=== PATIENT | male | born 1970 | race Caucasian/White ===

== ENCOUNTER → 2018-06-16 | Outpatient (CLI) | payer OTHER ==
--- NOTE | 2018-06-16 11:48 | XR ---
EXAMINATION TYPE: XR shoulder complete RT DATE OF EXAM: 06/16/2018 CLINICAL HISTORY: Injury with pain. TECHNIQUE: Three views of the right shoulder are obtained. COMPARISON: None. FINDINGS: There is no acute fracture/dislocation evident in the right shoulder. There is mild to mod erate narrowing at acromioclavicular joint. Glenohumeral joint is maintained. The visualized ribs ar e intact and unremarkable. IMPRESSION: There is no acute fracture or dislocation in the right shoulder.
== END ==
LOC: RADXRMAIN 11:13
PROVIDERS: ATTEND Emergency Medicine
DX: S43.401A Unspecified sprain of right shoulder joint, initial encounter (principal)

== ENCOUNTER → 2018-06-23 | Outpatient (CLI) | payer OTHER ==
--- NOTE | 2018-06-23 10:27 | MR ---
EXAMINATION TYPE: MR shoulder RT wo con DATE OF EXAM: 06/23/2018 COMPARISON: Plain film 06/16/2018 HISTORY: Sprain of right shoulder joint TECHNIQUE: Multiplanar, multisequence imaging of the right shoulder is performed without contrast. FINDINGS: Rotator Cuff: Abnormal increased signal and thickening present within the rotator cuff, increased sig nal at the undersurface extends into the tendon suggestive of a rim rent tear Acromioclavicular Joint: Intact Glenohumeral Joint: Within normal limits Labrum: The labrum appears grossly intact given limitation of non-arthrogram study. Biceps Tendon: The long head of biceps is in normal location within bicipital groove. Bone marrow signal: Pseudocysts are present within the humeral head. Other: There is some fluid signal subacromial subdeltoid bursa. IMPRESSION: Partial tear, possible [place] tear with tendinosis of the rotator cuff
== END | disposition home or self-care (01) ==
LOC: RADMRIMAIN 06:51
PROVIDERS: ATTEND Emergency Medicine
DX: S43.401D Unspecified sprain of right shoulder joint, subsequent encounter (principal); M75.111 Incomplete rotator cuff tear or rupture of right shoulder, not specified as traumatic

== ENCOUNTER 2018-09-09 06:29 | Day surgery (SDC) | payer BC, OTHER ==
[2018-09-07 12:57] VITALS: BMI 40.4
--- NOTE | 2018-09-08 09:12 | HP ---
HISTORY AND PHYSICAL CHIEF COMPLAINT: Right shoulder pain. 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 He fell over, catching himself landing on the right arm. He has persistent pain with overhead use and at night. He has tried therapy without much relief. He denies previous problems. PAST MEDICAL HISTORY: Negative. PAST SURGICAL HISTORY: Significant for appendectomy and previous left shoulder surgery. CURRENT MEDICATIONS: Aleve. He denies drug allergies. FAMILY HISTORY: Significant for cardiac disease. SOCIAL HISTORY: Negative for current tobacco or alcohol use. REVIEW OF SYSTEMS: A 16-point review of systems otherwise reviewed and is noncontributory. PHYSICAL EXAMINATION: On examination, the patient is approximately 5 foot 7, 248 pounds of endomorphic habitus. HEENT exam is nonfocal. Neck is supple. He is tender about the right shoulder anterior subacromial space. He has moderate subacromial crepitus. Active range of motion forward elevation 155 degrees, external rotation with arm at side 60 degrees. internal rotation to L1. Motor strength is 5-/5 for abduction, 5-/5 for external rotation. Impingement test, Neer test are positive. His distal neurovascular exam appears intact in the right upper extremity. Previous MRI report right shoulder shows evidence of increased signal involving the supraspinatus insertion indicative of a possible partial-thickness tear. IMPRESSION: Impingement right shoulder with rotator cuff strain/partial-thickness rotator cuff tear. RECOMMENDATIONS: I talked to the patient at length regarding his condition along with treatment options. He is having persistent symptoms despite adequate conservative measures. After a thorough discussion, he opts to proceed with surgery. We will plan to proceed with arthroscopic evaluation with possible subacromial decompression, arthroscopic rotator cuff repair versus debridement. Risks and benefits were discussed at length in layman's terms. We will likely perform that as an outpatient procedure. MMODL / IJN: [id number] /
[~2018-09-09 06:29] MED LIST: DEXAMETHASONE SOD PHOSPHATE 10 MG/ML 1 ML VIAL IV ONE; HYDROmorphone 0.5 MG/0.5 ML SYRINGE IVP PRN; LACTATED RINGERS 1,000 ML IV SCH; MIDAZOLAM 2 MG/2 ML VIAL IV PRN; ONDANSETRON 4 MG/2 ML VIAL IVP ONE; SCOPOLAMINE 1.5MG/72HR PATCH TRANSDERM ONE; ceFAZolin IN SWFI 2 GM/20 ML SYRINGE IVP ONE
[2018-09-09] MEDS ORDERED: LIDOCAINE 1% 20 ML VIAL (10MG/ML) FOR IV START INTRADERMA ONE (06:59)
[2018-09-09] MEDS: fentaNYL (PF) 50 MCG/ML 2 ML AMP IVP ONE ×2 (07:04→07:10)
[2018-09-09] MEDS ORDERED: fentaNYL (PF) 50 MCG/ML 2 ML AMP ONE (08:21)
[2018-09-09] MEDS ORDERED: MIDAZOLAM 2 MG/2 ML VIAL ONE (08:21)
[2018-09-09] MEDS ORDERED: LIDOCAINE 1% INJ 10MG/ML (20 ML MDV) ONE (08:21)
[2018-09-09] MEDS ORDERED: PROPOFOL 10 MG/ML 20 ML VIAL IV ONE (08:21)
[2018-09-09] MEDS ORDERED: DEXAMETHASONE SOD PHOSPHATE 4 MG/ML 1 ML VIAL ONE (08:21)
[2018-09-09] MEDS ORDERED: ROPIVACAINE 5 MG/ML 30 ML VIAL ONE (08:21)
[2018-09-09] MEDS ORDERED: SUCCINYLCHOLINE CHLORIDE 100 MG/5 ML SYR IV ONE (08:21)
[2018-09-09] MEDS ORDERED: EPINEPHrine (PF) 1 ML in SODIUM CHLORIDE 0.9% IRRIGATIO 3,000 ML IRRIGATION ONE ×8 (08:25)
--- NOTE | 2018-09-09 08:59 | P.ANPRN ---
Procedure Note - Anesthesia - Nerve Block Performed Right Interscalene Single Time Out Performed: Yes Date of Procedure: 09/09/18 Procedure Start Time: 07:02 Procedure Stop Time: 07:15 Location of Patient Procedure: PreOp Indication: Requested by physician Specifically requested for management of pain by DrNatty: Natan Sears Sedation Type: Sedate with meaningful contact maintained Preparation: Sterile Prep Position: Supine Needle Types: Pajunk Needle Gauge: 21 Technique: Ultrasound (20 ml plus Dexamethason 4 mg ) Injectate: 0.5% Ropivacaine (see comment for volume) Blood Aspirated: No Pain Paresthesia on Injection Noted: No Resistance on Injection: Normal Events: Uneventful and Well Tolerated
[2018-09-09 09:39] VITALS: TEMP 97.5
--- NOTE | 2018-09-09 09:47 | P.OP ---
Date of Procedure: 09/09/18 Preoperative Diagnosis: Right shoulder impingement/rotator cuff strain/partial thickness rotator cuff tear Postoperative Diagnosis: High-grade partial-thickness tear supraspinatus tendon Procedure(s) Performed: Right shoulder arthroscopic subacromial decompression/partial synovectomy/rotator cuff repair Implants: Arthrex 5.5 mm swivel lock anchor 1 Anesthesia: nelly VALERO Surgeon: Natan Sears Estimated Blood Loss (ml): 10 Pathology: none sent Condition: stable Disposition: PACU Indications for Procedure: The patient's a 48-year-old [id number] health who presents after an injury at work recently with persistent pain despite conservative measures. A discussion of the risks and benefits of operative intervention versus continued conservative measures was made with patient. He opted to proceed with surgery. Operative risks to include infection, neurovascular injury, development of blood clots, possible tendon repair, possible postoperative stiffness, and possible need for subsequent procedures was discussed. Informed consent was obtained. Operative Findings: As below Description of Procedure: The patient was brought to the operating room, and after induction of general anesthesia was placed in a beachchair position. A preoperative interscalene block was placed for postoperative analgesia. I examined the [right] shoulder. There was no gross block to passive motion or gross glenohumeral instability. The right upper extremity was prepped and draped in normal fashion. The bony outlines the acromion, distal clavicle, and coracoid process were outlined with a skin marker. The glenohumeral joint was inflated with 50 mL of saline utilizing a spinal needle from posterior approach. A posterior portal was made through a 5 mm skin incision 1 cm medial and inferior to the posterior lateral border time. A blunt trocar was used to easily into the joint. Diagnostic arthroscopy was performed. An anterior portal was made just lateral to the coracoid process entering the joint above the subscapularis tendon. The subscapularis tendon appeared to be intact. Anterior labrum was intact. The inferior recess was inspected. The posterior labrum was intact. The biceps and its anchor were intact. On inspection the rotator cuff, a high-grade partial-thickness tear was noted involving the supraspinatus tendon. This was debrided with a motorized shaver completing the tear. The portion of the cuff was intact. The arthroscope was placed into the subacromial space. The soft tissue on the undersurface of the acromion was debrided with a motorized shaver and electrocautery clearly defining the anterior medial and lateral borders as well as the distal clavicle. An anterior inferior acromioplasty was performed with a motorized unique starting anterolateral, then extending this posteriorly, then extending this medially. I converted to a flat acromion and this was verified in the posterior and lateral viewing portals. The greater tuberosity was lightly decorticating with a shaver down to a bleeding bony surface. The rotator cuff was inspected on the bursal surface. The bursal tissues debrided with a motorized shaver. The supraspinatus tear measured approximately 1 cm. This is easily mobilized back to the greater tuberosity. The greater tuberosity was lightly decorticated utilizing a motorized bur. A scorpion suture passer was used to pass a #2 fiber tape through the rotator cuff. This was then brought down laterally with a 5.5 mm swivel lock anchor. Good purchase was obtained. Final arthroscopic view showed adequate compression at the footprint. The arthroscope was then removed. The portals were closed with simple 3-0 nylon sutures. A sterile dressing was applied in addition to a sling. The patient was then awoken from general anesthesia and transferred to recovery room in good condition. Blood loss was estimated at 10 mL. No complications were incurred. Sponge and needle counts were correct in the case. I utilized a nurse drug safety assistant for the case.
[2018-09-09 09:50] VITALS: RESP 16
[2018-09-09 11:26] VITALS: PULSE 71
[2018-09-09 12:04] VITALS: BP 120/68
== END 2018-09-09 12:07 | disposition home or self-care (01) ==
LOC: OR 06:29
PROVIDERS: ATTEND Orthopaedic Surgery
DX: S46.011A Strain of muscle(s) and tendon(s) of the rotator cuff of right shoulder, initial encounter (principal); K21.9 Gastro-esophageal reflux disease without esophagitis; W19.XXXA Unspecified fall, initial encounter; Y93.9 Activity, unspecified; Z90.49 Acquired absence of other specified parts of digestive tract; Z79.1 Long term (current) use of non-steroidal anti-inflammatories (NSAID); Z82.49 Family history of ischemic heart disease and other diseases of the circulatory system
CPT/HCPCS: 29826; 29827; 64415; C1713 ×2; C1894; J2250; J1100 ×2; J2405; J0171; J2001; J3010; J2795; J0330; J2704; J0690